=== PATIENT | female | born 1950 | race Caucasian/White ===

== ENCOUNTER → 2024-12-28 09:55 | Outpatient (REF) | payer MEDICARE, SELFPAY | LOC: WDC 09:55 | PROVIDERS: ATTENDING PHYSICIAN Family Medicine | DX: N63.21 Unspecified lump in the left breast, upper outer quadrant (principal) | CPT/HCPCS: 76642; 77062; 77066 ==

== ENCOUNTER → 2025-01-04 07:59 | Outpatient (REF) | payer MEDICARE, SELFPAY ==
--- NOTE | 2025-01-04 13:25 | OID.BR.INTR ---
[facility] Breast Navigator - Initial
- -
Date of Contact: 01/04/25
Met with patient. Patient given written information on navigator service available at [facility]. Will follow up as needed per protocol.
== END ==
LOC: WDC 07:59
PROVIDERS: ATTENDING PHYSICIAN Family Medicine
DX: N63.21 Unspecified lump in the left breast, upper outer quadrant (principal)
CPT/HCPCS: 88305; 19083; 88341; 88360; A4648

== ENCOUNTER → 2025-02-02 10:24 | Outpatient (REF) | payer MEDICARE, OTHER, SELFPAY | LOC: WDC 10:24 | PROVIDERS: ATTENDING PHYSICIAN Surgery | DX: C50.412 Malignant neoplasm of upper-outer quadrant of left female breast (principal) | CPT/HCPCS: 38792; 76942; A9541 ==

== ENCOUNTER 2025-02-03 06:23 | Inpatient (IN) | payer MEDICARE, OTHER, SELFPAY ==
[2025-01-25 09:00] LABS: Hematocrit 39.5 % (37.0-47.0); Hemoglobin 13.6 g/dL (12.0-16.0); Mean Corp Hgb Conc. 34.4 g/dL (33.0-37.0); Mean Corpuscular Volume 91.6 fL (81.0-99.0); Platelet Count 245 10^3/uL (130-400); Red Cell Dist. Width 12.8 % (11.5-14.5)
[2025-01-25 09:19] LABS: ALT (SGPT) 17 U/L (0-35); AST (SGOT) 21 U/L (14-36); Albumin 4.5 g/dl (3.5-5.0); Alkaline Phosphatase 60 U/L (38-126); Blood Urea Nitrogen 23 mg/dl (7-17); Calcium 9.7 mg/dl (8.4-10.2); Carbon Dioxide 27 mmol/L (22-30); Chloride 105 mmol/L (98-107); Glucose 84 mg/dl (70-99); Potassium 4.8 mmol/L (3.5-5.1); Sodium 138 mmol/L (135-145); Total Protein 7.4 g/dl (6.3-8.2); eGFR 59.49
[2025-01-25 09:24] LABS: Prealbumin (Transthyretin) 20.0 mg/dl (17.6-36.0)
[2025-01-25 09:38] LABS: Vitamin D, 25-OH*** 32.7 ng/mL (30-80)
[2025-02-03] VITALS (24 sets, daily range): BP systolic 22–156; BP diastolic 54–85; BMI 27.1
[2025-02-03] MEDS: VANCOCIN 200 IV (07:12)
--- NOTE | 2025-02-03 07:15 | W.SUR.PREOP ---
Pre-Operative Surgical Note
-
I have examined this patient prior to the performance of the scheduled procedure.
The patient's condition is unchanged from the time of the current History and
Physical and the patient is able to undergo the scheduled procedure.
[2025-02-03] MEDS: TYLENOL 1000 MG PO (07:20)
[2025-02-03] MEDS: NORMOSOL-R/PLASMALYTE-A 1000 IV (07:20)
[2025-02-03] MEDS: LOVENOX 40 MG SC (07:20)
[2025-02-03] MEDS: EMEND 40 MG PO (07:29)
--- NOTE | 2025-02-03 11:08 | OR.RPT ---
Addendum entered and electronically signed by Johanna Chung MD 02/09/25 10:32:
Correct date of procedure is 02/04/25.
Original Note:
Operative Report
Operative Report
Date of surgery: 02/22/2025
Surgeon: Sheldon
Preoperative diagnosis: Multicentric left breast carcinoma
Postoperative diagnosis: Multicentric left breast carcinoma
Procedure: Left mastectomy and sentinel lymph node mapping and biopsy
Patient is a 74-year-old female who presented with a palpable left breast mass and upon workup was found to have 4 separate tumor sites. The tumor was hormone positive with no negative imaging and she presents for left mastectomy and sentinel lymph
node mapping and biopsy. She declined reconstructive surgery.
On the day prior to the procedure the patient presented to the [facility] where technetium radiotracer was injected in the breast parenchyma. In the day of the surgery that she presented to same-day surgical services. She was prepped and
she verified site and procedure. DVT and antibiotic prophylaxis were provided. She was taken to the operating room and in the supine position general anesthesia was induced. The left breast was prepped and draped in the usual sterile fashion and
all team members performed an appropriate timeout procedure.
A standard Dick incision was made sharply with a blade and skin flaps were elevated using the PlasmaBlade. Any larger vessels were tied with a 3-0 silk tie. Dissection was carried down to the chest wall and the breast was taken off en bloc.
Time out of body was noted and the specimen was oriented for the pathologist and sent for immediate processing. This allowed access into the axilla where the clavipectoral fascia was incised and using the neoprobe 3 sentinel node packets were
identified and remved, Feeding vessels to the nodes were controlled with 3-0 silk tie. After the removal of these nodes there was a greater than 4 fold reduction to background count. Hemostasis was verified. The wound was irrigated and suctioned
with warm water. A flat Be-Swan drain was brought out through the inferior skin flap and secured to the skin using 2-0 nylon. A PECs II tube block was performed using 0.5% Marcaine plain. Skin was closed using simple interrupted 3-0 plain
of subcutaneous tissue and a running subcuticular 4 Monocryl on skin. Surgical glue and sterile compressive dressings were applied. The patient was transferred to the recovery room in stable condition.
([id number])
[place] Node Bx Breast Cancer
[place] Node Bx Breast Cancer
Operation performed with curative intent: Yes
Tracer(s) to ID [place] Nodes in Non-Neoadjuvant setting: Radioactive Tracer
Tracer(s) to ID Sent[place] Nodes in the Neoadjuvant Setting: N/A
All nodes at end of dye-filled Lymphatic Channel removed: N/A
All Significantly Radioactive Nodes were removed: Yes
All Palpably Suspicious Nodes were Removed: Yes
Bx Proven Pos Nodes Marked Prior to Chemo ID'd & Removed: N/A
[2025-02-03] MEDS: D5/0.45%NSS with KCL 20 MEQ 1000 IV (13:09)
[2025-02-03] MEDS: ZOFRAN 4 MG IV (13:09)
[2025-02-03] MEDS: TYLENOL 500 MG PO (14:59)
--- NOTE | 2025-02-03 15:44 | CM ---
Referral to [facility] for RN drain care. Anticipate discharge 02/04/25.
--- NOTE | 2025-02-03 16:12 | PTCARENOTE ---
Pt arrived to floor from PACU at aprox 1515. Pt vitals stable. Pt is s/p left breast mastectomy. Surgical bra on and dressings underneath clean and dry. SWATHI to left breast with sanguinous drainage. Pt admission and assessment done. Pt with no c/o at
this time. Pt was assisted to bedside commode and urinated. Will order something for lunch. Instructed to ring for assistance.
[2025-02-03] MEDS: CRESTOR 10 MG PO (17:33)
[2025-02-03] MEDS: COLACE PO (20:00)
[2025-02-04] MEDS: D5/0.45%NSS with KCL 20 MEQ 1000 IV (00:26)
[2025-02-04] MEDS: TYLENOL 500 MG PO (00:27)
[2025-02-04 03:50] VITALS: BP 129/73
[2025-02-04 07:25] VITALS: BP 128/71
--- NOTE | 2025-02-04 07:48 | W.PN.UPDATE ---
Update Note
Progress Note Update
The pt is POD #1 S/P left simple mastectomy and sentinel node mapping and biopsy. She is doing well and in minimal discomfort. Tolerated PO intake, required no narcotics.
Wound healing well and flaps are viable. Drain stripped and functioning. Plan to D/C to home with VNA in place. RTO 7-10 days.
--- NOTE | 2025-02-04 07:55 | W.DS.TRANS ---
DC Summary - [facility]
-
Discharge Instructions:
Sleep Apnea Risk Low
Diet No restrictions
Additional Diets consume 60-80 gm of protein each day
Activity No strenuous activity
Driving Restrictions when feel safe
Bathing Restrictions shower tomorrow replace dressings
Other Services VN
Instructions:
Stand-Alone Forms:
Changes to Home Medications: No
Discharge Medications:
DC Medications w/original date entered in [facility]
acetaminophen 325 mg tablet 650 mg PO Q4H PRN pain 01/27/25
aspirin 81 mg tablet,delayed release 162 mg PO DAILY Blood Clot Prevention/Tx 01/27/25
cholecalciferol (vitamin D3) 25 mcg (1,000 unit) tablet (Vitamin D3) 25 mcg PO DAILY Supplement 01/27/25
rosuvastatin 10 mg tablet 10 mg PO DAILY High Cholesterol 01/27/25
Home Medication Changes
Pending Results: Yes (pathology of breast and lymph nodes)
Total time spent discharging patient (in min): 15 mins
[2025-02-04] MEDS: COLACE 100 MG PO (08:05)
[2025-02-04] MEDS: PROTONIX 40 MG PO (08:05)
[2025-02-04] MEDS: VITAMIN D3 (cholecalciferol) 25 MCG PO (08:07)
[2025-02-04] MEDS: ASPIR LOW (ENTERIC COATED) 81 MG PO (09:18)
[2025-02-04] MEDS: TYLENOL 650 MG PO (09:18)
--- NOTE | 2025-02-04 09:25 | CM ---
Per [facility], this pt has been accepted for home care services by [facility].
== END 2025-02-04 09:50 | disposition home health service (06) | DRG 581 ==
LOC: 2 SOUTH 06:23
PROVIDERS: ADMITTING PHYSICIAN Surgery; FAMILY PHYSICIAN Family Medicine
PROC: 07B70ZX Excision of Thorax Lymphatic, Open Approach, Diagnostic (ICD-10-PCS; 2025-02-03)
PROC: 0HTU0ZZ Resection of Left Breast, Open Approach (ICD-10-PCS; 2025-02-03)
DX: C50.912 Malignant neoplasm of unspecified site of left female breast (principal); E78.5 Hyperlipidemia, unspecified; Z79.82 Long term (current) use of aspirin; F41.9 Anxiety disorder, unspecified; Z88.0 Allergy status to penicillin
CPT/HCPCS: 36415; 38792; 76942; 80053; 82306; 84134; 85027; 88307; 88342; 93005; A9541

== ENCOUNTER → 2025-03-20 11:44 | Outpatient (REF) | payer MEDICARE, OTHER, SELFPAY ==
[2025-03-20 12:36] LABS: Hematocrit 40.1 % (37.0-47.0); Hemoglobin 13.4 g/dL (12.0-16.0); Mean Corp Hgb Conc. 33.4 g/dL (33.0-37.0); Mean Corpuscular Volume 90.9 fL (81.0-99.0); Nucleated Red Blood Cells % 0 %; Platelet Count 232 10^3/uL (130-400); Red Cell Dist. Width 12.6 % (11.5-14.5)
[2025-03-20 13:22] LABS: ALT (SGPT) 26 U/L (0-35); AST (SGOT) 22 U/L (14-36); Albumin 4.3 g/dl (3.5-5.0); Alkaline Phosphatase 70 U/L (38-126); Blood Urea Nitrogen 29 mg/dl (7-17); Calcium 9.7 mg/dl (8.4-10.2); Carbon Dioxide 27 mmol/L (22-30); Chloride 105 mmol/L (98-107); Glucose 129 mg/dl (70-99); Potassium 4.4 mmol/L (3.5-5.1); Sodium 138 mmol/L (135-145); Total Protein 7.4 g/dl (6.3-8.2); eGFR > 60.00
== END ==
LOC: REG 11:44
PROVIDERS: ATTENDING PHYSICIAN Internal Medicine Hematology & Oncology; FAMILY PHYSICIAN Family Medicine
DX: C50.412 Malignant neoplasm of upper-outer quadrant of left female breast (principal)
CPT/HCPCS: 36415; 80053; 85025

== ENCOUNTER → 2025-03-29 13:09 | Outpatient (REF) | payer MEDICARE, OTHER, SELFPAY ==
[2025-03-29 13:55] LABS: Hematocrit 39.9 % (37.0-47.0); Hemoglobin 13.1 g/dL (12.0-16.0); Mean Corp Hgb Conc. 32.8 g/dL (33.0-37.0); Mean Corpuscular Volume 90.1 fL (81.0-99.0); Platelet Count 176 10^3/uL (130-400); Red Cell Dist. Width 12.6 % (11.5-14.5)
[2025-03-29 15:51] LABS: Absolute Neutrophils -Man Diff 5.3 10^3/uL (1.4-6.5)
[2025-03-29 15:52] LABS: Normal RBC Morphology Yes; Platelets Checked Yes; Total Cells Counted 100
== END ==
LOC: REG 13:09
PROVIDERS: ATTENDING PHYSICIAN Internal Medicine Hematology & Oncology; FAMILY PHYSICIAN Family Medicine
DX: C50.412 Malignant neoplasm of upper-outer quadrant of left female breast (principal)
CPT/HCPCS: 36415; 85025

== ENCOUNTER → 2025-04-04 15:34 | Outpatient (REF) | payer MEDICARE, OTHER, SELFPAY ==
[2025-04-04 16:29] LABS: Absolute Neutrophils -Man Diff 35.1 10^3/uL (1.4-6.5); Hematocrit 37.3 % (37.0-47.0); Hemoglobin 12.2 g/dL (12.0-16.0); Mean Corp Hgb Conc. 32.7 g/dL (33.0-37.0); Mean Corpuscular Volume 91.0 fL (81.0-99.0); Platelet Count 117 10^3/uL (130-400); Red Cell Dist. Width 13.4 % (11.5-14.5)
[2025-04-04 16:30] LABS: Platelets Checked Yes
[2025-04-04 16:31] LABS: Normal RBC Morphology Yes; Total Cells Counted 100
== END ==
LOC: REG 15:34
PROVIDERS: ATTENDING PHYSICIAN Internal Medicine Hematology & Oncology; FAMILY PHYSICIAN Family Medicine
DX: C50.412 Malignant neoplasm of upper-outer quadrant of left female breast (principal)
CPT/HCPCS: 36415; 85025

== ENCOUNTER → 2025-04-12 08:01 | Outpatient (REF) | payer MEDICARE, OTHER, SELFPAY ==
[2025-04-12 09:27] LABS: Hematocrit 36.6 % (37.0-47.0); Hemoglobin 11.8 g/dL (12.0-16.0); Mean Corp Hgb Conc. 32.2 g/dL (33.0-37.0); Mean Corpuscular Volume 91.0 fL (81.0-99.0); Nucleated Red Blood Cells % 0 %; Platelet Count 279 10^3/uL (130-400); Red Cell Dist. Width 13.6 % (11.5-14.5)
[2025-04-12 09:51] LABS: ALT (SGPT) 30 U/L (0-35); AST (SGOT) 20 U/L (14-36); Albumin 4.2 g/dl (3.5-5.0); Alkaline Phosphatase 137 U/L (38-126); Blood Urea Nitrogen 22 mg/dl (7-17); Calcium 9.4 mg/dl (8.4-10.2); Carbon Dioxide 28 mmol/L (22-30); Chloride 105 mmol/L (98-107); Glucose 77 mg/dl (70-99); Potassium 4.3 mmol/L (3.5-5.1); Sodium 138 mmol/L (135-145); Total Protein 7.1 g/dl (6.3-8.2); eGFR > 60.00
== END ==
LOC: REG 08:01
PROVIDERS: ATTENDING PHYSICIAN Internal Medicine Hematology & Oncology; FAMILY PHYSICIAN Family Medicine
DX: C50.412 Malignant neoplasm of upper-outer quadrant of left female breast (principal)
CPT/HCPCS: 36415; 80053; 85025

== ENCOUNTER → 2025-04-19 14:41 | Outpatient (REF) | payer MEDICARE, OTHER, SELFPAY ==
[2025-04-19 17:01] LABS: Hematocrit 33.0 % (37.0-47.0); Hemoglobin 11.0 g/dL (12.0-16.0); Mean Corp Hgb Conc. 33.3 g/dL (33.0-37.0); Mean Corpuscular Volume 88.0 fL (81.0-99.0); Platelet Count 106 10^3/uL (130-400); Red Cell Dist. Width 13.6 % (11.5-14.5)
[2025-04-19 18:01] LABS: Absolute Neutrophils -Man Diff 4.6 10^3/uL (1.4-6.5); Platelets Checked Yes
[2025-04-19 18:03] LABS: Normal RBC Morphology Yes; Total Cells Counted 100
== END ==
LOC: REG 14:41
PROVIDERS: ATTENDING PHYSICIAN Internal Medicine Hematology & Oncology; FAMILY PHYSICIAN Family Medicine
DX: C50.412 Malignant neoplasm of upper-outer quadrant of left female breast (principal)
CPT/HCPCS: 36415; 85025

== ENCOUNTER → 2025-04-26 11:35 | Outpatient (REF) | payer MEDICARE, OTHER, SELFPAY ==
[2025-04-26 13:01] LABS: Hematocrit 34.9 % (37.0-47.0); Hemoglobin 11.3 g/dL (12.0-16.0); Mean Corp Hgb Conc. 32.4 g/dL (33.0-37.0); Mean Corpuscular Volume 90.2 fL (81.0-99.0); Platelet Count 167 10^3/uL (130-400); Red Cell Dist. Width 14.9 % (11.5-14.5)
[2025-04-26 13:42] LABS: Absolute Neutrophils -Man Diff 31.3 10^3/uL (1.4-6.5)
[2025-04-26 13:43] LABS: Total Cells Counted 100; Toxic Granulation 2+
[2025-04-26 13:52] LABS: Normal RBC Morphology Yes; Platelets Checked Yes
== END ==
LOC: REG 11:35
PROVIDERS: ATTENDING PHYSICIAN Internal Medicine Hematology & Oncology; FAMILY PHYSICIAN Family Medicine
DX: C50.412 Malignant neoplasm of upper-outer quadrant of left female breast (principal)
CPT/HCPCS: 36415; 85025

== ENCOUNTER → 2025-05-03 09:01 | Outpatient (REF) | payer MEDICARE, OTHER, SELFPAY ==
[2025-05-03 09:52] LABS: Hematocrit 34.6 % (37.0-47.0); Hemoglobin 11.2 g/dL (12.0-16.0); Mean Corp Hgb Conc. 32.4 g/dL (33.0-37.0); Mean Corpuscular Volume 94.3 fL (81.0-99.0); Nucleated Red Blood Cells % 0 %; Platelet Count 200 10^3/uL (130-400); Red Cell Dist. Width 15.2 % (11.5-14.5)
[2025-05-03 10:19] LABS: ALT (SGPT) 42 U/L (0-35); AST (SGOT) 29 U/L (14-36); Albumin 4.0 g/dl (3.5-5.0); Alkaline Phosphatase 139 U/L (38-126); Blood Urea Nitrogen 19 mg/dl (7-17); Calcium 9.6 mg/dl (8.4-10.2); Carbon Dioxide 29 mmol/L (22-30); Chloride 104 mmol/L (98-107); Glucose 90 mg/dl (70-99); Potassium 4.4 mmol/L (3.5-5.1); Sodium 138 mmol/L (135-145); Total Protein 6.5 g/dl (6.3-8.2); eGFR 59.49
== END ==
LOC: REG 09:01
PROVIDERS: ATTENDING PHYSICIAN Internal Medicine Hematology & Oncology; FAMILY PHYSICIAN Family Medicine
DX: C50.412 Malignant neoplasm of upper-outer quadrant of left female breast (principal)
CPT/HCPCS: 36415; 80053; 85025

== ENCOUNTER → 2025-05-10 08:09 | Outpatient (REF) | payer MEDICARE, OTHER, SELFPAY ==
[2025-05-10 09:58] LABS: Hematocrit 32.4 % (37.0-47.0); Hemoglobin 10.5 g/dL (12.0-16.0); Mean Corp Hgb Conc. 32.4 g/dL (33.0-37.0); Mean Corpuscular Volume 92.8 fL (81.0-99.0); Red Cell Dist. Width 15.7 % (11.5-14.5)
[2025-05-10 10:34] LABS: Nucleated Red Blood Cells % 0 %; Platelet Count 93 10^3/uL (130-400)
== END ==
LOC: REG 08:09
PROVIDERS: ATTENDING PHYSICIAN Internal Medicine Hematology & Oncology; FAMILY PHYSICIAN Family Medicine
DX: C50.412 Malignant neoplasm of upper-outer quadrant of left female breast (principal)
CPT/HCPCS: 36415; 85025

== ENCOUNTER → 2025-05-16 10:50 | Outpatient (REF) | payer MEDICARE, OTHER, SELFPAY ==
[2025-05-16 11:53] LABS: Hematocrit 32.1 % (37.0-47.0); Hemoglobin 10.5 g/dL (12.0-16.0); Mean Corp Hgb Conc. 32.7 g/dL (33.0-37.0); Mean Corpuscular Volume 93.3 fL (81.0-99.0); Platelet Count 214 10^3/uL (130-400); Red Cell Dist. Width 17.0 % (11.5-14.5)
[2025-05-16 13:14] LABS: Absolute Neutrophils -Man Diff 40.6 10^3/uL (1.4-6.5)
[2025-05-16 13:15] LABS: Anisocytosis 1+; Normal RBC Morphology No; Platelets Checked Yes; Total Cells Counted 100
== END ==
LOC: REG 10:50
PROVIDERS: ATTENDING PHYSICIAN Internal Medicine Hematology & Oncology; FAMILY PHYSICIAN Family Medicine
DX: C50.412 Malignant neoplasm of upper-outer quadrant of left female breast (principal)
CPT/HCPCS: 36415; 85025

== ENCOUNTER → 2025-05-23 14:25 | Outpatient (REF) | payer MEDICARE, OTHER, SELFPAY ==
[2025-05-23 15:58] LABS: ALT (SGPT) 43 U/L (0-35); AST (SGOT) 31 U/L (14-36); Albumin 4.1 g/dl (3.5-5.0); Alkaline Phosphatase 145 U/L (38-126); Blood Urea Nitrogen 24 mg/dl (7-17); Calcium 9.3 mg/dl (8.4-10.2); Carbon Dioxide 30 mmol/L (22-30); Chloride 102 mmol/L (98-107); Glucose 99 mg/dl (70-99); Potassium 4.0 mmol/L (3.5-5.1); Sodium 136 mmol/L (135-145); Total Protein 6.9 g/dl (6.3-8.2); eGFR 53.06
[2025-05-23 16:07] LABS: Hematocrit 31.7 % (37.0-47.0); Hemoglobin 10.8 g/dL (12.0-16.0); Mean Corp Hgb Conc. 34.1 g/dL (33.0-37.0); Mean Corpuscular Volume 91.6 fL (81.0-99.0); Nucleated Red Blood Cells % 0.1 %; Platelet Count 207 10^3/uL (130-400); Red Cell Dist. Width 17.4 % (11.5-14.5)
== END ==
LOC: REG 14:25
PROVIDERS: ATTENDING PHYSICIAN Internal Medicine Hematology & Oncology; FAMILY PHYSICIAN Family Medicine
DX: C50.412 Malignant neoplasm of upper-outer quadrant of left female breast (principal)
CPT/HCPCS: 36415; 80053; 85025

== ENCOUNTER → 2025-05-31 08:10 | Outpatient (REF) | payer MEDICARE, OTHER, SELFPAY ==
[2025-05-31 09:12] LABS: Hematocrit 32.9 % (37.0-47.0); Hemoglobin 10.2 g/dL (12.0-16.0); Mean Corp Hgb Conc. 31.0 g/dL (33.0-37.0); Mean Corpuscular Volume 96.5 fL (81.0-99.0); Red Cell Dist. Width 18.0 % (11.5-14.5)
[2025-05-31 09:17] LABS: Nucleated Red Blood Cells % 0 %; Platelet Count 81 10^3/uL (130-400)
== END ==
LOC: REG 08:10
PROVIDERS: ATTENDING PHYSICIAN Internal Medicine Hematology & Oncology; FAMILY PHYSICIAN Family Medicine
DX: C50.412 Malignant neoplasm of upper-outer quadrant of left female breast (principal)
CPT/HCPCS: 36415; 85025

== ENCOUNTER → 2025-06-06 10:44 | Outpatient (REF) | payer MEDICARE, OTHER, SELFPAY ==
[2025-06-06 11:35] LABS: Hematocrit 34.9 % (37.0-47.0); Hemoglobin 10.8 g/dL (12.0-16.0); Mean Corp Hgb Conc. 30.9 g/dL (33.0-37.0); Mean Corpuscular Volume 98.6 fL (81.0-99.0); Platelet Count 223 10^3/uL (130-400); Red Cell Dist. Width 18.7 % (11.5-14.5)
[2025-06-06 12:01] LABS: Absolute Neutrophils -Man Diff 28.7 10^3/uL (1.4-6.5)
[2025-06-06 12:03] LABS: Anisocytosis Slight; Hypochromasia Slight; Normal RBC Morphology No; Ovalocytes Slight; Platelets Checked Yes; Polychromasia Slight; Total Cells Counted 100
== END ==
LOC: REG 10:44
PROVIDERS: ATTENDING PHYSICIAN Internal Medicine Hematology & Oncology; FAMILY PHYSICIAN Family Medicine
DX: C50.412 Malignant neoplasm of upper-outer quadrant of left female breast (principal)
CPT/HCPCS: 36415; 85025

== ENCOUNTER → 2025-06-13 08:19 | Outpatient (REF) | payer MEDICARE, OTHER, SELFPAY ==
[2025-06-13 09:06] LABS: Hematocrit 31.6 % (37.0-47.0); Hemoglobin 10.6 g/dL (12.0-16.0); Mean Corp Hgb Conc. 33.5 g/dL (33.0-37.0); Mean Corpuscular Volume 95.8 fL (81.0-99.0); Nucleated Red Blood Cells % 0 %; Platelet Count 201 10^3/uL (130-400); Red Cell Dist. Width 18.6 % (11.5-14.5)
[2025-06-13 16:31] LABS: ALT (SGPT) 27 U/L (0-35); AST (SGOT) 22 U/L (14-36); Albumin 4.2 g/dl (3.5-5.0); Alkaline Phosphatase 138 U/L (38-126); Blood Urea Nitrogen 21 mg/dl (7-17); Calcium 9.4 mg/dl (8.4-10.2); Carbon Dioxide 28 mmol/L (22-30); Chloride 105 mmol/L (98-107); Glucose 87 mg/dl (70-99); Potassium 4.7 mmol/L (3.5-5.1); Sodium 136 mmol/L (135-145); Total Protein 6.9 g/dl (6.3-8.2); eGFR 59.49
== END ==
LOC: REG 08:19
PROVIDERS: ATTENDING PHYSICIAN Internal Medicine Hematology & Oncology; FAMILY PHYSICIAN Family Medicine
DX: C50.412 Malignant neoplasm of upper-outer quadrant of left female breast (principal)
CPT/HCPCS: 36415; 80053; 85025